=== PATIENT | male | born 1970 | race Caucasian/White ===

== ENCOUNTER → 2021-05-08 13:04 | Outpatient (BNVA) | payer MEDICARE, SELFPAY | PROVIDERS: Visit Provider Nurse Practitioner Family | DX: Z20.822 Contact with and (suspected) exposure to COVID-19 (principal); Z11.52 Encounter for screening for COVID-19 | CPT/HCPCS: 87635 ==

== ENCOUNTER → 2022-01-09 14:40 | Outpatient (BNVA) | payer MEDICARE, SELFPAY | PROVIDERS: Visit Provider Nurse Practitioner Family | DX: M25.531 Pain in right wrist (principal); G89.29 Other chronic pain; M19.031 Primary osteoarthritis, right wrist | CPT/HCPCS: 73110 ==

== ENCOUNTER → 2025-05-01 06:44 | Day surgery (SDC) | payer OTHER, SELFPAY ==
[2025-05-01 06:51] VITALS: BMI 31.1
[2025-05-01 07:06] VITALS: BP 119/96; PULSE 89; RESP 18; TEMP 36.5; O2SAT 97
--- NOTE | 2025-05-01 07:33 | ECG_ITS ---
[facility] Date: 2025-05-01 Pat Name: Conner Taylor Department: Room: Gender: Male Credit Analyst: : 1970 Requested By: Flora Bowman Order Number: [id number] Daphne MD: Alonso Barrera M.D. Measurements Intervals [place] Rate: 77 P: 264 LA: 156 QRS: 18 QRSD: 102 T: 31 QT: 384 QTc: 437 Interpretive Statements SINUS RHYTHM WITH OCCASIONAL VENTRICULAR PREMATURE COMPLEXES Compared to ECG 07/18/2017 17:12:13 Ventricular premature complex(es) now present Electronically Signed On 05-01-2025 21:54:13 CDT by Alonso Barrera M.D. [email or web address]
--- NOTE | 2025-05-01 07:39 | PM.MISC ---
Miscellaneous Note Note: Patient reporting intermittent chest pain on exertion. Referring to cardiology. Cancelling scope.
--- NOTE | 2025-05-01 07:54 | PC.NURSE ---
Patients procedure is cancelled by anesthesia due to chest pain. Per anesthesia patient needs to follow up with cardiology before they can proceed.
== END ==
LOC: GILAB 06:47
PROVIDERS: Visit Provider Student in an Organized Health Care Education/Training Program
PROC: 0DJD8ZZ Inspection of Lower Intestinal Tract, Via Natural or Artificial Opening Endoscopic (ICD-10-PCS; CPT 45378; principal; 2025-05-01 08:00)
DX: Z53.8 Procedure and treatment not carried out for other reasons (principal)
CPT/HCPCS: 93005; J2704; J7030